=== PATIENT | female | born 1970 | race Caucasian/White ===

== ENCOUNTER 2020-01-01 10:02 | Emergency (ER) | payer BC, SELFPAY ==
[2020-01-01 10:03] VITALS: BP 139/73; PULSE 81; RESP 17; TEMP 36.4; O2SAT 98; BMI 26.9
--- NOTE | 2020-01-01 10:43 | EKG12_ITS ---
Test Reason : Blood Pressure : / mmHG Vent. Rate : 056 BPM Atrial Rate : 056 BPM P-R Int : 174 ms QRS Dur : 090 ms QT Int : 402 ms P-R-T Axes : 060 026 060 degrees QTc Int : 387 ms Sinus bradycardia Low voltage QRS (Limb Leads) Confirmed by MAGDALENA MESSINA, CONNIE ([id number]), news editor LAKISHA GARCIA ([id number]) on 01/05/2020 11:27:39 AM Referred By: OLEG Confirmed By:CONNIE NICHOLS MD
--- NOTE | 2020-01-01 10:43 | CT_ITS ---
STUDY: CT ABDOMEN AND PELVIS WITH CONTRAST REASON FOR EXAM: Female, 49 years old. ABD PAIN X 2 MON, WORSENING ABD DISTENTION, RADIATION DOSAGE (If Supplied By Facility): CTDIvol = ( 8.92 ) mGy, DLP = ( 354.75 ) mGycm TECHNIQUE: Transaxial images were obtained from the dome of the diaphragm to the symphysis pubis with oral contrast. 100mL Isovue-370 was administered. Sagittal and coronal images were reconstructed. Individualized dose optimization techniques were used for this CT. COMPARISON: None. FINDINGS: The visualized lung bases are unremarkable. The visualized portions of the heart are within normal limits. Mild intrahepatic biliary prominence. The common duct measures 0.9 cm.. There are surgical clips in the gallbladder fossa consistent with a prior cholecystectomy. Normal spleen. Normal pancreas. Normal bilateral adrenal glands. Normal right kidney. Normal left kidney. There is wall thickening of the distal stomach. Normal small intestine. Normal colon. The appendix is visualized and appears normal. Normal abdominal aorta. Normal inferior vena cava. Normal retroperitoneum. Normal urinary bladder. There is absence of the uterus consistent with a prior hysterectomy. There is no free fluid in the abdomen or pelvis. Normal abdominal wall. Normal osseous structures. CT/Abdomen/Pelvis WITH Contrast IMPRESSION: Prior cholecystectomy. Mild intra and extrahepatic biliary prominence. Wall thickening of the stomach with gastritis versus ulcer disease. Electronically Signed: Live Sheth MD at 13:46 EDT , Service support ,
--- NOTE | 2020-01-01 10:58 | ED.DCSUM_ITS ---
History of Present Illness Chief Complaint: Abd Pain Informant: Patient - Abdominal Pain/Flank Pain Onset: Month(s) Context: Gradual Onset Timing: Continuous Quality: Aching, Cramping, Dull, Sharp Location: Diffuse - Nausea/Vomiting/Emesis GI Symptom: Nausea. Negative for: Vomiting - Diarrhea/Melena/Hematochezia GI Symptom: Diarrhea. Negative for: Melena, Hematochezia Associated Symptoms: Dysuria - pressure Narrative: Patient is a 49-year-old female with history of abdominal pain and PTSD/anxiety presenting with worsening abdominal pain and distention. Patient states she had cramping and bloating abdominal pain diffusely for the past 3 months. She had multiple ER visits to facilities as well as [place]. Patient's had a pelvic ultrasound as well as a imaging in November, 1 month ago. She had a colonoscopy 2 weeks ago on December 14 at facility as well as an EGD. Patient was found to have a polyp as well as some erosions. Patient states she was having some black stools which is why she had the colonoscopy. She is continued to have diarrhea which she describes as yellow. She denies any further black or bloody stools. Patient is currently on sucralfate, omeprazole, and Colace. Her abdomen is more distended today and continues to have diffuse crampy abdominal pain. She cannot describe any 1 area of pain. She is a full appointment with her GI doctor at but did not think she could wait that long. She denies any other complaints at this time. Prior similar symptoms: Yes Past Medical History - Allergies and Home Meds Allergies/Adverse Reactions: Allergies varenicline [From Chantix] Allergy (Verified 01/01/20 10:03) Angioedema Primary Care Physician: Halina Martinez MD [Primary Care Provider] - Past Medical History: - - Anxiety, GERD, gastritis, PTSD Surgical History: - - Diascopy/colonoscopy, cholecystectomy Smoking Status: Current every day smoker Review of Systems General: Denies: Chills, Fever, Sweats Eyes: Denies: Visual changes - bilaterally, Diplopia ENT: Denies: Rhinorrhea, Sore throat Cardiovascular: Denies: Chest pain, Palpitations Respiratory: Denies: Dyspnea, Cough, Dyspnea on exertion Gastrointestinal: Reports: Abdominal pain, Nausea, Vomiting, Diarrhea, - - Bloating. Denies: Constipation, Melena, Hematochezia Genitourinary: Denies: Dysuria, Hematuria, Frequency Musculoskeletal: Denies: Back pain, Extremity Pain Skin: Denies: Rash, Wounds Neurological: Denies: Headache, Weakness, Numbness Physical Exam Vital Signs/Narrative: Vital Signs Temp Pulse Resp BP Pulse Ox 01/01/20 10:03 97.5 F L 81 17 139/73 H 98 Inital Vital Signs reviewed: Yes General: Well nourished, Well developed, No Acute Distress Head: Normocephalic, Atraumatic Eyes: Perrl, EOMI ENT: Moist mucous membranes, No rhinorrhea Neck: Supple, Nontender Cardiovascular: Regular rate, Regular rhythm, No murmurs Respiratory: No distress, CTA bilaterally, Chest nontender Abdomen: Soft, Normal bowel sounds, Tender - Diffusely, - - Mildly distended abdomen, no tympany, no fluid wave. Negative for: Guarding, Rebound tenderness Back: Nontender, Normal Inspection. Negative for: CVA tenderness Extremities: Nontender, No edema Skin: Normal color, No rash Neurological: Alert, Oriented x3, Cranial nerves II-XII grossly intact, Normal Strength, Normal Sensation Psychological: Normal affect, Normal Mood Diagnostic/Tx/Re-eval Clinical Impression(s) from Imaging Studies Abdomen/Pelvis CT 01/01/20 10:43 IMPRESSION: Prior cholecystectomy. Mild intra and extrahepatic biliary prominence. Wall thickening of the stomach with gastritis versus ulcer disease. Electronically Signed: Live Sheth MD at 13:46 EDT , Service support , Laboratory Data 01/01/20 11:05 Urine RBC 0 SEEN Urine WBC 0 SEEN Ur Squamous Epith Cells 0 SEEN Urine Bacteria 0 SEEN Urine Mucus 0 SEEN Laboratory Results - last 24 hr 01/01/20 01/01/20 01/01/20 11:02 11:02 11:02 WBC 9.6 RBC 5.17 Hgb 14.6 Hct 45.2 MCV 87.4 MCH 28.2 MCHC 32.3 RDW Std Deviation 44.5 H RDW Coeff of Griselda 13.9 Plt Count 287 MPV 9.2 Immature Gran % (Auto) 0.600 Neut % (Auto) 70.4 H Lymph % (Auto) 21.1 [place] % (Auto) 6.8 Eos % (Auto) 0.6 Baso % (Auto) 0.5 Absolute Neuts (auto) 6.7 Absolute Lymphs (auto) 2.02 Nucleated RBC % 0 Sodium 139 Potassium 3.8 Chloride 105 Carbon Dioxide 28.0 Anion Gap 6 BUN 13 Creatinine 0.69 Estim Creat Clear Calc 77.05 Est GFR (MDRD) Af Amer 115 Est GFR (MDRD) Non-Af 95 BUN/Creatinine Ratio 18.8 Glucose 100 Lactic Acid 0.8 Calcium 9.1 Total Bilirubin 0.60 AST 12 L ALT 23 Alkaline Phosphatase 48 Troponin I < 0.015 Total Protein 7.7 Albumin 4.1 Globulin 3.6 Albumin/Globulin Ratio 1.1 Lipase 82 Urine Color Urine Clarity Urine pH Ur Specific [place] Urine Protein Urine Glucose (UA) Urine Ketones Urine Occult Blood Urine Nitrite Urine Bilirubin Urine Urobilinogen Ur Leukocyte Esterase Urine RBC Urine WBC Ur Squamous Epith Cells Urine Bacteria Urine Mucus 01/01/20 11:05 WBC RBC Hgb Hct MCV MCH MCHC RDW Std Deviation RDW Coeff of Griselda Plt Count MPV Immature Gran % (Auto) Neut % (Auto) Lymph % (Auto) [place] % (Auto) Eos % (Auto) Baso % (Auto) Absolute Neuts (auto) Absolute Lymphs (auto) Nucleated RBC % Sodium Potassium Chloride Carbon Dioxide Anion Gap BUN Creatinine Estim Creat Clear Calc Est GFR (MDRD) Af Amer Est GFR (MDRD) Non-Af BUN/Creatinine Ratio Glucose Lactic Acid Calcium Total Bilirubin AST ALT Alkaline Phosphatase Troponin I Total Protein Albumin Globulin Albumin/Globulin Ratio Lipase Urine Color Yellow Urine Clarity Clear Urine pH 7.0 Ur Specific [place] 1.030 Urine Protein Negative Urine Glucose (UA) Normal Urine Ketones Negative Urine Occult Blood Negative Urine Nitrite Negative Urine Bilirubin Negative Urine Urobilinogen Normal Ur Leukocyte Esterase Negative Urine RBC 0 SEEN Urine WBC 0 SEEN Ur Squamous Epith Cells 0 SEEN Urine Bacteria 0 SEEN Urine Mucus 0 SEEN - Rhythm Strip Rhythm Strip: Bradycardia Rate: 56 Ectopy: None - EKG Initial EKG Interpretation: Sinus Bradycardia, - - Sinus bradycardia at a rate of 56 Normal axis Normal intervals Normal ST segments - Medical Decision Making Is evaluated for worsening abdominal pain and discomfort. She is had abdominal symptoms for the past 3 months. She is already had follow-up with GI and actually been scoped. She is on multiple medications for gastritis including sucralfate and omeprazole. Patient has a CT performed with IV and p.o. contrast that shows gastritis versus peptic ulcer disease which is consistent with her symptoms. Patient is given initially morphine and Phenergan for symptom control. She is redosed with Zofran and given IV Protonix. She is also given a GI cocktail and Bentyl. On reevaluation patient still says she has discomfort but is comfortable with going home. Patient is normal hemoglobin so do not think she has a GI bleed. Does not have any signs of free air in the abdomen or rupture. Do not think she requires admission. Likely this is just a persistent gastritis however patient already has outpatient follow-up with GI. No signs of small bowel obstruction or other acute process. Patient is counseled on signs and symptoms requiring return to the emergency room. Patient verbalizes agreement and understand this plan. Patient discharged home in stable and improved condition. ED Disposition - Plan for ED Patient: Disposition: Home or Assisted Living Diagnosis: Gastritis, Abdominal bloating, Diffuse abdominal pain Instructions: ED PEPTIC ULCER vs GASTRITIS Prescriptions: Dicyclomine HCl [Bentyl] 20 mg PO TIDAC #20 cap Transmission Status: Received by [facility]-[address] [place] [address] Referrals: Halina Martinez MD [Primary Care Provider] - Additional Instructions: CT shows inflammation of your stomach consistent with either gastric ulcer or gastritis. Please continue to follow-up with your GI doctor. You have prescribed a medicine that hopefully will help with your abdominal discomfort called Bentyl. You may also try [id number] to help with the bloating. You are safe to go home and return to work tomorrow.
[2020-01-01] MEDS: Ondansetron 4 MG/2 ML Vial IV (11:06)
[2020-01-01] MEDS: 0.9% Normal Saline 1,000 ML 1000 ML IV (11:06)
[2020-01-01] MEDS: Morphine 4 MG/ML Syringe IV (11:07)
[2020-01-01 11:16] LABS: Bacteria 0 SEEN /hpf (None Seen); Mucous, Urine 0 SEEN /hpf (<or=2+); Red Blood Cells-Urine 0 SEEN /hpf (0-5); Squamous Epithelial Cells - UA 0 SEEN /hpf (5-10); White Blood Cells 0 SEEN /hpf (0-5)
[2020-01-01 11:21] LABS: Absolute Lymphocyte Count 2.02 X10^3/uL (0.83-4.51); Absolute Neutrophil Count 6.7 X10^3/uL (2.0-7.7); Basophil# 0.05 X10^3/uL; Basophil% 0.5 % (0-1); Eosinophil# 0.06 X10^3/uL; Eosinophils% 0.6 % (0-5); Hematocrit 45.2 % (37-47); Hemoglobin 14.6 g/dL (12.0-15.0); Lymphocyte # 2.02 X10^3/ul (4.0); Lymphocyte % 21.1 % (19-41); Mean Corp Hgb Conc 32.3 g/dL (32-36); Mean Corpuscular Hgb 28.2 pg (27.0-32.0); Mean Corpuscular Volume 87.4 fL (81-99); Mean Platelet Vol. 9.2 fl (6.2-12.0); Monocyte# 0.65 X10^3/uL; Monocyte% 6.8 % (0-10); NRBC Flagged by Analyzer 0 % (0-5); Neutrophil # 6.72 X10^3/uL (2.7-7.7); Neutrophil % 70.4 % (47-70); Platelet Count 287 K/mm3 (150-450); RBC Distribution Width CV 13.9 % (11.6-14.6); RBC Distribution Width SD 44.5 fl (35.1-43.9); Red Blood Count 5.17 M/mm3 (4.2-5.4); White Blood Count 9.6 K/mm3 (4.4-11.0)
[2020-01-01 11:25] LABS: Color, Urine Yellow (Yellow); Glucose, Dipstick Normal (Normal); Ketone-Dipstick Negative (Negative); Leukocyte Esterase-Dipstick Negative /ul (Negative); Nitrite-Dipstick Negative (Negative); Occult Blood-Urine Negative /ul (Negative); Protein-Dipstick Negative (Negative); Urine Bilirubin Dipstick Negative (Negative); Urine Clarity Clear (Clear); Urine Urobilinogen Normal (Normal)
[2020-01-01 11:36] LABS: ALB/GLOB Ratio 1.1 RATIO (0.9-2.4); AST(SGOT) 12 U/L (15-37); Alanine Aminotransfer ALT/SGPT 23 U/L (13-56); Albumin, Serum 4.1 g/dL (3.2-5.0); Alkaline Phosphatase 48 U/L (45-117); Anion Gap 6 (5-15); BUN 13 mg/dL (7-18); BUN/Creat Ratio 18.8 RATIO (10-20); Calcium,Total 9.1 mg/dL (8.5-10.1); Chloride 105 mmol/L (98-107); Creatinine, Serum 0.69 mg/dL (0.55-1.02); EST Glomerular Filtration Rate 95 mL/min (>60); Est Glom Filt Rate - Afr Amer 115 mL/min (>60); Estimated Creatinine Clearance 77.05 ml/min; Globulin 3.6 g/dL (2.2-4.2); Glucose 100 mg/dL (74-106); Lactic Acid 0.8 mmol/L (0.4-1.9); Lipase 82 U/L (73-393); Potassium 3.8 mmol/L (3.5-5.1); Protein, Total 7.7 g/dL (6.4-8.2); Sodium Level 139 mmol/L (136-145)
[2020-01-01] MEDS: proMETHazine 25 MG/ML Syringe 12.5 MG IV (12:09)
[2020-01-01] MEDS: Ketorolac 15 MG/ML Vial IV (12:15)
[2020-01-01] MEDS: Mag Hydrox/Al Hydrox/Simeth 30 ML UDC PO (12:43)
[2020-01-01 12:44] VITALS: BP 128/62; PULSE 66; RESP 18; O2SAT 100
[2020-01-01] MEDS: Dicyclomine 10 MG Capsule 20 MG PO (15:13)
[2020-01-01 15:16] VITALS: BP 101/59; PULSE 63; RESP 18; TEMP 36.8; O2SAT 95
== END 2020-01-01 15:39 | disposition home or self-care (01) ==
PROVIDERS: Emergency Provider Emergency Medicine; PCP Internal Medicine
DX: K29.70 Gastritis, unspecified, without bleeding (principal); R14.0 Abdominal distension (gaseous); R10.84 Generalized abdominal pain; F17.200 Nicotine dependence, unspecified, uncomplicated; K21.9 Gastro-esophageal reflux disease without esophagitis; F41.9 Anxiety disorder, unspecified; Z79.899 Other long term (current) drug therapy
CPT/HCPCS: 74177; 80053; 81001; 83605; 83690; 84484; 85025; 93005; 96361; 96365; 96375; 99283; J7030; Q9967; A4216; J2405